=== PATIENT | female | born 1975 ===

== ENCOUNTER → 2018-05-12 12:14 | Outpatient (CLI) | payer OTHER, SELFPAY ==
--- NOTE | 2018-05-12 | DI.US.S_ITS ---
PROCEDURE: US PELVIC COMPLETE INDICATIONS: LEFT PELVIC PAIN TECHNIQUE: Real-time scanning was performed of the pelvic organs, with image documentation. Additional endovaginal scanning was necessary due to incomplete visualization of the adnexal and endometrial structures by transabdominal scanning. COMPARISON: None. FINDINGS: Transabdominal scanning: Limited scanning through the kidneys shows no hydronephrosis. The kidneys measure 11.2 cm right and 9.0 cm left. No pathologic free abdominal or pelvic fluid. Endovaginal scanning: Uterus: Uterus is normal in size at 4.5 x 6.9 x 9.1 cm. The endometrium measures 7.2 mm in combined thickness. There is a subcentimeter intramural fibroid in the anterior lower uterine segment measuring 7 x 8 x 9 mm. Ovaries: The right ovary appears normal measuring 13 x 17 x 18 mm. The left ovary measures 24 x 25 x 31 mm and contains a simple cyst measuring 17 x 20 x 22 mm. IMPRESSION: 1. Small uterine fibroid lower uterine segment. 2. Simple 2.2 cm left ovarian cyst. There are no findings seen to indicate etiology of pelvic pain. Dictated by: Zelalem Miller M.D. on 05/13/2018 at 8:17 Approved by: Zelalem Miller M.D. on 05/13/2018 at 8:20
== END ==
PROVIDERS: Family Provider Internal Medicine; Visit Provider Physician Assistant Medical
DX: R10.2 Pelvic and perineal pain (principal); R10.32 Left lower quadrant pain; D25.9 Leiomyoma of uterus, unspecified; N83.292 Other ovarian cyst, left side
CPT/HCPCS: 76830; 76856